=== PATIENT | male | born 1995 | race American Indian/Alaskan Native ===

== ENCOUNTER 2021-08-14 19:28 | Emergency (ER) | payer SELFPAY ==
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
[2021-08-15] MEDS ORDERED: IBUPROFEN 800 MG TAB PO ONE (11:25)
--- NOTE | 2021-08-15 11:47 | XRay Report ---
LUMBAR SPINE 3 VIEWS INDICATION / CLINICAL INFORMATION: back pain. COMPARISON: None available. FINDINGS: VERTEBRAE: No acute fracture. No significant malalignment. DISC SPACES / FACET JOINTS:No significant abnormality. PARASPINAL SOFT TISSUES:No significant abnormality. ADDITIONAL FINDINGS: None. Signer Name: Diaz Franco DO Signed: 08/15/2021 8:57 AM Workstation Name: [id number]
[2021-08-15 11:59] VITALS: BP 127/65
== END 2021-08-15 17:22 | disposition home or self-care (01) ==
LOC: ED 19:28
DX: S30.0XXA Contusion of lower back and pelvis, initial encounter (principal); Z79.899 Other long term (current) drug therapy; Y04.8XXA Assault by other bodily force, initial encounter; Y93.89 Activity, other specified; Y92.89 Other specified places as the place of occurrence of the external cause; Y99.8 Other external cause status
CPT/HCPCS: 72100; 99284